=== PATIENT | male | born 1965 | race American Indian/Alaskan Native ===

== ENCOUNTER 2017-05-14 09:54 | Outpatient (CLI) | payer BC ==
[2017-05-14] MEDS ORDERED: XYLOCAINE TOPICAL 4% TP ONE ×2 (10:35→11:15)
[2017-05-14] MEDS ORDERED: SILVER NITRATE TP ONE (12:13)
== END 2017-05-14 09:55 | disposition home or self-care (01) ==
LOC: WOUND 09:54
PROVIDERS: ATTEND Surgery
DX: E11.621 Type 2 diabetes mellitus with foot ulcer (principal); L97.421 Non-pressure chronic ulcer of left heel and midfoot limited to breakdown of skin; E11.22 Type 2 diabetes mellitus with diabetic chronic kidney disease; I12.9 Hypertensive chronic kidney disease with stage 1 through stage 4 chronic kidney disease, or unspecified chronic kidney disease; N18.3 Chronic kidney disease, stage 3 (moderate); I89.0 Lymphedema, not elsewhere classified; Z89.422 Acquired absence of other left toe(s)
CPT/HCPCS: 11042; G0463

== ENCOUNTER 2017-05-21 13:04 | Outpatient (CLI) | payer BC ==
[2017-05-21] MEDS ORDERED: XYLOCAINE TOPICAL 4% TP ONE ×2 (13:24→13:31)
== END 2017-05-21 13:05 | disposition home or self-care (01) ==
LOC: WOUND 13:04
PROVIDERS: ATTEND Internal Medicine
DX: E11.621 Type 2 diabetes mellitus with foot ulcer (principal); L97.521 Non-pressure chronic ulcer of other part of left foot limited to breakdown of skin; L97.511 Non-pressure chronic ulcer of other part of right foot limited to breakdown of skin; S80.811D Abrasion, right lower leg, subsequent encounter; E11.22 Type 2 diabetes mellitus with diabetic chronic kidney disease; I12.9 Hypertensive chronic kidney disease with stage 1 through stage 4 chronic kidney disease, or unspecified chronic kidney disease; N18.9 Chronic kidney disease, unspecified; I10 Essential (primary) hypertension; I25.2 Old myocardial infarction; Z89.432 Acquired absence of left foot; X58.XXXD Exposure to other specified factors, subsequent encounter
CPT/HCPCS: 29581

== ENCOUNTER 2017-05-28 09:57 | Outpatient (CLI) | payer BC ==
[2017-05-28] MEDS ORDERED: XYLOCAINE TOPICAL 4% TP ONE ×2 (10:20→10:26)
== END 2017-05-28 09:58 | disposition home or self-care (01) ==
LOC: WOUND 09:57
PROVIDERS: ATTEND Internal Medicine
DX: E11.622 Type 2 diabetes mellitus with other skin ulcer (principal); L97.811 Non-pressure chronic ulcer of other part of right lower leg limited to breakdown of skin; E11.621 Type 2 diabetes mellitus with foot ulcer; L97.521 Non-pressure chronic ulcer of other part of left foot limited to breakdown of skin; I89.0 Lymphedema, not elsewhere classified; E11.22 Type 2 diabetes mellitus with diabetic chronic kidney disease; I12.9 Hypertensive chronic kidney disease with stage 1 through stage 4 chronic kidney disease, or unspecified chronic kidney disease; N18.3 Chronic kidney disease, stage 3 (moderate); I25.2 Old myocardial infarction; Z89.432 Acquired absence of left foot
CPT/HCPCS: 29581

== ENCOUNTER 2017-06-14 09:02 | Outpatient (CLI) | payer BC ==
[2017-06-14] MEDS ORDERED: XYLOCAINE TOPICAL 4% TP ONE (10:00)
== END 2017-06-14 09:03 | disposition home or self-care (01) ==
LOC: WOUND 09:02
PROVIDERS: ATTEND Internal Medicine
DX: I87.333 Chronic venous hypertension (idiopathic) with ulcer and inflammation of bilateral lower extremity (principal); L97.521 Non-pressure chronic ulcer of other part of left foot limited to breakdown of skin; L97.511 Non-pressure chronic ulcer of other part of right foot limited to breakdown of skin; E11.22 Type 2 diabetes mellitus with diabetic chronic kidney disease; I13.0 Hypertensive heart and chronic kidney disease with heart failure and stage 1 through stage 4 chronic kidney disease, or unspecified chronic kidney disease; N18.3 Chronic kidney disease, stage 3 (moderate); I89.0 Lymphedema, not elsewhere classified; I25.2 Old myocardial infarction; L84 Corns and callosities; Z86.14 Personal history of Methicillin resistant Staphylococcus aureus infection; Z89.432 Acquired absence of left foot

== ENCOUNTER 2017-06-15 09:16 | Outpatient (CLI) | payer BC ==
[2017-06-15] MEDS ORDERED: XYLOCAINE TOPICAL 2% TP ONE (09:35)
[2017-06-15] MEDS ORDERED: XYLOCAINE TOPICAL 2% ONE (09:40)
== END 2017-06-15 09:17 | disposition home or self-care (01) ==
LOC: WOUND 09:16
PROVIDERS: ATTEND Podiatrist
DX: I87.333 Chronic venous hypertension (idiopathic) with ulcer and inflammation of bilateral lower extremity (principal); L97.822 Non-pressure chronic ulcer of other part of left lower leg with fat layer exposed; E11.622 Type 2 diabetes mellitus with other skin ulcer; I89.0 Lymphedema, not elsewhere classified; E11.22 Type 2 diabetes mellitus with diabetic chronic kidney disease; I12.9 Hypertensive chronic kidney disease with stage 1 through stage 4 chronic kidney disease, or unspecified chronic kidney disease; N18.3 Chronic kidney disease, stage 3 (moderate); I25.2 Old myocardial infarction; Z89.432 Acquired absence of left foot

== ENCOUNTER 2017-06-15 10:49 | Outpatient (CLI) | payer BC ==
--- NOTE | 2017-06-15 14:15 | XRay Report ---
LEFT ANKLE RADIOGRAPHS INDICATION: Malalignment. COMPARISON: None similar. FINDINGS: AP, lateral and oblique left ankle radiographs demonstrate intact ankle mortise, malleoli and talar dome contour. Diffuse lower leg, ankle and included foot soft tissue swelling. 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 CONCLUSION: No acute left ankle bony abnormality, though diffuse soft tissue swelling and midfoot deformity noted, as above. Thank you for the opportunity to participate in this patient's care.
--- NOTE | 2017-06-16 09:45 | XRay Report ---
Left foot 3 views: History: Alignment. Findings: The patellar tendon and in the subtalar joint appears normal. There is flattening noted of the arch of the foot. There is multiple fragmentation noted of the tarsal bones these subluxations and separation of the fracture fragments. Deformity is noted of the fifth metatarsal. Generalized osteopenia. 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 Less likely septic arthritis and osteomyelitis.
== END 2017-06-15 10:50 | disposition home or self-care (01) ==
LOC: XRAY 10:49
PROVIDERS: ATTEND Podiatrist
DX: M21.6X2 Other acquired deformities of left foot (principal); M85.872 Other specified disorders of bone density and structure, left ankle and foot; M25.472 Effusion, left ankle

== ENCOUNTER 2017-07-05 09:02 | Outpatient (CLI) | payer BC ==
[2017-07-05] MEDS ORDERED: XYLOCAINE TOPICAL 4% TP ONE ×2 (09:24)
== END 2017-07-05 09:03 | disposition home or self-care (01) ==
LOC: WOUND 09:02
PROVIDERS: ATTEND Nurse Practitioner
DX: I87.332 Chronic venous hypertension (idiopathic) with ulcer and inflammation of left lower extremity (principal); E11.622 Type 2 diabetes mellitus with other skin ulcer; L97.822 Non-pressure chronic ulcer of other part of left lower leg with fat layer exposed; E11.22 Type 2 diabetes mellitus with diabetic chronic kidney disease; I12.9 Hypertensive chronic kidney disease with stage 1 through stage 4 chronic kidney disease, or unspecified chronic kidney disease; N18.3 Chronic kidney disease, stage 3 (moderate); I89.0 Lymphedema, not elsewhere classified; I25.2 Old myocardial infarction; Z89.432 Acquired absence of left foot

== ENCOUNTER 2017-07-19 09:08 | Outpatient (CLI) | payer BC ==
[2017-07-19] MEDS ORDERED: XYLOCAINE TOPICAL 4% TP ONE ×2 (09:40→09:46)
[2017-07-19] MEDS ORDERED: AD OINTMENT TP ONE (09:40)
[2017-07-19] MEDS ORDERED: AD OINTMENT TP SCH (10:00)
== END 2017-07-19 09:09 | disposition home or self-care (01) ==
LOC: WOUND 09:08
PROVIDERS: ATTEND Nurse Practitioner
DX: I87.332 Chronic venous hypertension (idiopathic) with ulcer and inflammation of left lower extremity (principal); L97.521 Non-pressure chronic ulcer of other part of left foot limited to breakdown of skin; E11.622 Type 2 diabetes mellitus with other skin ulcer; E11.22 Type 2 diabetes mellitus with diabetic chronic kidney disease; I12.9 Hypertensive chronic kidney disease with stage 1 through stage 4 chronic kidney disease, or unspecified chronic kidney disease; N18.3 Chronic kidney disease, stage 3 (moderate); I89.0 Lymphedema, not elsewhere classified; I25.2 Old myocardial infarction; L84 Corns and callosities; Z89.432 Acquired absence of left foot
CPT/HCPCS: 11055; A6250

== ENCOUNTER 2017-08-02 09:00 | Outpatient (CLI) | payer BC ==
[2017-08-02] MEDS ORDERED: XYLOCAINE TOPICAL 4% TP ONE (09:23)
== END 2017-08-02 09:01 | disposition home or self-care (01) ==
LOC: WOUND 09:00
PROVIDERS: ATTEND Nurse Practitioner
DX: I87.332 Chronic venous hypertension (idiopathic) with ulcer and inflammation of left lower extremity (principal); E11.621 Type 2 diabetes mellitus with foot ulcer; L97.822 Non-pressure chronic ulcer of other part of left lower leg with fat layer exposed; E11.22 Type 2 diabetes mellitus with diabetic chronic kidney disease; I12.9 Hypertensive chronic kidney disease with stage 1 through stage 4 chronic kidney disease, or unspecified chronic kidney disease; N18.3 Chronic kidney disease, stage 3 (moderate); I89.0 Lymphedema, not elsewhere classified; I25.2 Old myocardial infarction; Z89.432 Acquired absence of left foot

== ENCOUNTER 2017-08-09 09:01 | Outpatient (CLI) | payer BC ==
[2017-08-09] MEDS ORDERED: XYLOCAINE TOPICAL 2% 5ML TP ONE (09:13)
[2017-08-09] MEDS ORDERED: XYLOCAINE TOPICAL 2% 5ML ONE (09:14)
== END 2017-08-09 09:02 | disposition home or self-care (01) ==
LOC: WOUND 09:01
PROVIDERS: ATTEND Nurse Practitioner
DX: E11.621 Type 2 diabetes mellitus with foot ulcer (principal); L97.522 Non-pressure chronic ulcer of other part of left foot with fat layer exposed; I87.322 Chronic venous hypertension (idiopathic) with inflammation of left lower extremity; E11.22 Type 2 diabetes mellitus with diabetic chronic kidney disease; I12.9 Hypertensive chronic kidney disease with stage 1 through stage 4 chronic kidney disease, or unspecified chronic kidney disease; N18.3 Chronic kidney disease, stage 3 (moderate); I89.0 Lymphedema, not elsewhere classified; Z89.432 Acquired absence of left foot
CPT/HCPCS: 99214; G0463